=== PATIENT | female | born 1985 ===

== ENCOUNTER 2020-04-14 08:15 | Inpatient (IN) | payer OTHER ==
[~2020-04-14] VITALS: Ht 160 cm; Wt 83.9 kg
[2020-04-14] MEDS ORDERED: SYNTHROID50 MCG PO (10:12)
[2020-04-14] MEDS ORDERED: CHANTIX1 MG PO (10:13)
== END 2020-04-22 12:36 | disposition home or self-care (01) | DRG 743 ==
LOC: SURH 04-19 08:15 → O/R 04-19 08:15 → SURH 04-19 11:00 → OB/GYN 04-19 16:53
PROVIDERS: ADMIT Obstetrics & Gynecology; ATTEND Obstetrics & Gynecology
PROC: 0UB70ZZ Excision of Bilateral Fallopian Tubes, Open Approach (ICD-10-PCS; 2020-04-19)
PROC: 0UB10ZX Excision of Left Ovary, Open Approach, Diagnostic (ICD-10-PCS; 2020-04-19)
PROC: 0UT90ZZ Resection of Uterus, Open Approach (ICD-10-PCS; principal; 2020-04-19 11:00)
DX: R87.613 High grade squamous intraepithelial lesion on cytologic smear of cervix (HGSIL) (principal); E03.9 Hypothyroidism, unspecified; N83.12 Corpus luteum cyst of left ovary